=== PATIENT | male | born 1990 | race Caucasian/White ===

== ENCOUNTER 2017-12-31 07:22 | Emergency (ER) | payer OTHER ==
[~2017-12-31] VITALS: Ht 175.3 cm; Wt 75.3 kg
[2017-12-31 07:46] LABS: HEMATOCRIT 47.8 % (38.0-50.0); HEMOGLOBIN 16.6 G/DL (12.5-16.6); MCH 30.2 PG (29.0-34.0); MCHC 34.7 G/DL (30.0-36.0); MCV 87.1 FL (86-99); PLATELET COUNT 304 K/uL (156-360); RBC DIS.WIDTH-CV 12.2 % (11.8-14.6); RED BLOOD COUNT 5.49 M/uL (4.00-5.50); WHITE BLOOD COUNT 11.9 K/uL (4.1-10.2)
[2017-12-31 08:17] LABS: CHLORIDE 105 MEQ/L (99-109); GFR ESTIMATE (CALCULATED) > 59 mL/min/ (58.99-99999); GLUCOSE 102 mg/dL (70-99); POTASSIUM 4.4 MEQ/L (3.7-5.4); SODIUM 141 MEQ/L (136-147); UREA NITROGEN (BUN) 12 mg/dL (9-23)
[2017-12-31] MEDS ORDERED: CLEOCIN300 MG PO (09:08)
[2017-12-31 09:41] VITALS: BP 137/82
== END 2017-12-31 09:57 | disposition home or self-care (01) ==
LOC: EME 07:22
PROVIDERS: Emergency Medicine
DX: L03.113 Cellulitis of right upper limb (principal); S50.861A Insect bite (nonvenomous) of right forearm, initial encounter; W57.XXXA Bitten or stung by nonvenomous insect and other nonvenomous arthropods, initial encounter; I89.1 Lymphangitis
CPT/HCPCS: 80048; 85027; 99281; 99284; J3370